=== PATIENT | male | born 1965 | race Caucasian/White ===

== ENCOUNTER → 2020-05-25 | Outpatient (CLI) | payer OTHER ==
--- NOTE | 2020-05-25 15:17 | Diagnostic Imaging Report ---
INDICATION: Chronic bilateral knee pain. COMPARISON: None. FINDINGS: Multiple radiographic views of the bilateral knees were obtained. There is no acute fracture or dislocation on either side. The osseous structures are intact. The joint spaces are maintained. There is mild osteoarthritic disease bilaterally. This consists of narrowing of the medial tibiofemoral compartment with osteophyte formations bilaterally. Patellar osteophytes are also noted, left much more prominent than right. There is no large effusion. No unexpected radiopaque foreign bodies are seen. IMPRESSION: 1. No acute fracture or dislocation of either knee. 2. Mild bilateral osteoarthritic changes. Dictated by: Dictated on workstation # [id number]
== END ==
LOC: RAD FS 14:09
PROVIDERS: ATTEND Nurse Practitioner
DX: M17.0 Bilateral primary osteoarthritis of knee (principal); Q53.212 Bilateral inguinal testes